=== PATIENT | male | born 1970 | race Caucasian/White ===

== ENCOUNTER 2022-09-03 20:24 | Emergency (ER) | payer BC ==
--- OUTSIDE RECORDS SUMMARY | 2022-09-03 20:28 | XMS REPORT | Continuity of Care Document ---
:1970 Author Organization [facility] t Address [address] [place] [address] Care Team Providers Name Role Phone Mindy Garcia DO Primary Care Physician Mindy Garcia Attending Clinician Unavailable MD MIRIAN Attending Clinician Unavailable MILLA HARRIS Attending Clinician Unavailable KSENIA DIAZ Attending Clinician Unavailable JULIOCESAR ROACH Attending Clinician Unavailable [id number] Attending Clinician Unavailable [id number] Attending Clinician Unavailable Ksenia Diaz MD Attending Clinician LAB90 Attending Clinician Unavailable Juliocesar Santiago Attending Clinician Payers Payer Name Policy Type Policy Number Effective Date Expiration Date S amanda BCBS 2 [id number] 2019 00:00:00 [employer] 6 [id number] 2019 Common Spiri t Blue [facility] of 00:00:00 - [facility] Problems Condition Condition Condition Status Onset Resolution Last Treating Co mments Source Name Details Category Date Date Treatment Clinician Date [id number] Vitamin D Problem Active Comm on deficiency [facility] [id number] Current Problem Active Common smoker [facility] [id number] Gastro-eso Problem Active Co mmon phageal Spirit reflux - [facility] disease [facility] esophagiti [facility] Abnormal Abnormal Problem Active Commo n weight loss of Spirit loss weight [facility] Palpitatio Palpitatio Problem Active C ommon ns ns Spirit - [facility] Chest Chest Problem Active Common discomfort discomfort Sp maria isabel - [facility] Cervicalgi Cervicalgi Problem Active C ommon a a Spirit [facility] [id number] Encounter Problem Active Com mon for Spirit vitamin - [facility] deficiency [facility] Acid Acid Problem Active Common reflux reflux [facility] [id number] Need for Problem Active Comm on diphtheria Spirit -tetanus-p - CHI ertussis St (Tdap) [facility] vaccine [facility] Cervical Cervical Problem Active Commo n radiculiti radiculiti Sp maria isabel s s - [facility] [id number] Encounter Problem Active Com mon for Spirit general - [facility] adult [facility] examinatio Medica l n with Center abnormal findings Lower Benign Problem Active Common urinary nodular [facility] tract prostatic - [facility] symptoms hyperplasi St due to a with [facility] benign lower [facility] prostatic urinary Center hypertroph tract y symptoms [id number] +5th digit Problem Active Co mmon eff Spirit 08/15/20*[place] - [facility] stroesopha [facility] reflux Medical disease Center with esophagiti s [id number] Multiple Problem Active Comm on allergies [facility] [id number] Seasonal Problem Active Comm on allergies [facility] [id number] Hemorrhoid Problem Active Com mon s, Spirit unspecifie - [facility] d hemorrhoid [facility] Nicotine Cigarette Problem Active Comm on dependence nicotine Spir it dependence - 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 Family History Family Member Diagnosis Comments Start Date Stop Date Source Natural father [facility] Natural mother [facility] Social History Social Habit Start Date Stop Date Quantity Comments Source History of Tobacco Current Smoker Co mmon Spirit - Use [facility] Cigarettes smoked 2017-09-13 2017-09-[address] current (pack per 00:00:00 00:00:00 Hospita l day) - Reported Alcohol intake 2017-09-13 2017-09-13 Current [facility] 00:[facility] 00:00:00 non-drinker of Hospital alcohol (finding) Sex Ass[birth year] At [birth year] [facility] 00[facility]00 Hospital Smoking Status Start Date Stop Date Source Current Smoker 2022-05-22 00:00:00 Common Spiri t - [facility] Medications Ordered Filled Start Stop Current Ordering Indication Dosage Frequency Signature Comments Components Source Medication Medication Date Date Medication? Clinician (SIG) Name Name Amlodipine Amlodipine 2019-0 Yes Na Garcia 1 tablet Common Besylate Besylate 06-25 Spirit 00:00: - [facility] Famotidine Famotidine 2019-0 Yes Na Garcia 1 tablet Common 6-23 at bedtime Spirit 00:00: as needed - [facility] Dexilant Dexilant 2019-0 Yes Na Garcia 1 capsule Common 2-24 Spirit 00:00: - [facility] Dexilant 60 Dexilant 60 2020-0 No 1{capsu QD Dexilant MG MG 2-24 le} 60 MG 00:00: 00 Dexilant 60 Dexilant 60 2020-0 No 1{capsu QD Dexilant MG MG 2-24 le} 60 MG 00:00: 00 Dexilant 60 Dexilant 60 2020-0 No 1{capsu QD Dexilant MG MG 2-24 le} 60 MG 00:00: 00 Pantoprazol Pantoprazol Yes Na Garcia 1 tablet Common e Sodium e Sodium 07-10 Spirit 00:00: - [facility] Chantix Chantix Yes Na Garcia as Comm on Starting Starting -28 directed Spi rit Month Michael Month Michael 00:00: - C HI [facility] Chantix Chantix 2018- No QD Chantix Starting Starting 5-28 Starting Month Michael Month Michael 00:00: Month Michael 0.5 MG X 11 0.5 MG X 11 00 0.5 MG X & 1 MG X 42 & 1 MG X 42 11 & 1 MG X 42 Chantix Chantix No QD Chantix Starting Starting 04-11 Starting Month Michael Month Michael 00:00: Month Michael 0.5 MG X 11 0.5 MG X 11 00 0.5 MG X & 1 MG X 42 & 1 MG X 42 11 & 1 MG X 42 Chantix Chantix No QD Chantix Starting Starting 04-11 Starting Month Michael Month Michael 00:00: Month Michael 0.5 MG X 11 0.5 MG X 11 00 0.5 MG X & 1 MG X 42 & 1 MG X 42 11 & 1 MG X 42 sertraline 2016-11 Yes 100mg QD Take 100 Me thodi (ZOLOFT) 0-[address] 100 MG 00:00: mouth once Hospi ta tablet 00 daily. l ranitidine 2016-11 Yes 150mg Q.5D Take 150 Me thodi (ZANTAC) 0-[address] 150 MG 00:00: mouth 2 Hospita tablet 00 (two) l times a day. Augmentin Augmentin Yes Na Garcia 1 tablet Common [facility] Zoloft Zoloft Yes Na Garcia TAKE 1 Common TABLET BY [facility] M[facility] Sertraline Sertraline Yes Na Garcia 1 tablet Common HCl HCl [facility] Flomax Flomax Yes Na Garcia 1 capsule Com mon [facility] Valacyclovi Valacyclovi Yes Na Garcia 1 tablet Common r HCl r HCl [facility] Losartan Losartan Yes Na Garcia 1 tablet Common Potassium Potassium Spiri t [facility] Mobic Mobic Yes Na Garcia 1 tablet Common [facility] Pantoprazol Pantoprazol No Pantoprazo e Sodium 40 e Sodium 40 le Sodium MG MG 40 MG Losartan Losartan No 1{table QD Losartan Potassium Potassium t} Potassium 50 MG 50 MG 50 MG valACYclovi valACYclovi No 1{table BID valACYclov r HCl 1 GM r HCl 1 GM t} ir HCl 1 GM Flomax 0.4 Flomax 0.4 No 1{capsu QD Flomax 0.4 MG MG le} MG amLODIPine amLODIPine No amLODIPine Besylate 10 Besylate 10 Besylate MG MG 10 MG Acetaminoph Acetaminoph No 2{table TID Acetaminop en ER 650 en ER 650 ts_as_n hen ER 650 MG MG eeded} MG Losartan Losartan No 1{table QD Losartan Potassium Potassium t} Potassium 100 MG 100 MG 100 MG Pantoprazol Pantoprazol No Pantoprazo e Sodium 40 e Sodium 40 le Sodium MG MG 40 MG Famotidine Famotidine No Famotidine 40 MG 40 MG 40 MG amLODIPine amLODIPine No QD amLODIPine Besylate 10 Besylate 10 Besylate MG MG 10 MG Mobic 15 MG Mobic 15 MG No 1{table QD Mobic 15 t} MG Carvedilol Carvedilol No 1{table BID Carvedilol 6.25 MG 6.25 MG t_with_ 6.25 MG food} Losartan Losartan No Losartan Potassium Potassium Potassium 100 MG 100 MG 100 MG Carvedilol Carvedilol No Carvedilol 6.25 MG 6.25 MG 6.25 MG Zoloft 100 Zoloft 100 No Zoloft 100 MG MG MG Pantoprazol Pantoprazol No 1{table QD Pantoprazo e Sodium 40 e Sodium 40 t} le Sodium MG MG 40 MG Augmentin Augmentin No 1{table BID Augmentin 875-125 MG 875-125 MG t} 875-125 MG Acetaminoph Acetaminoph No 2{table TID Acetaminop en ER 650 en ER 650 ts_as_n hen ER 650 MG MG eeded} MG Pantoprazol Pantoprazol No Pantoprazo e Sodium 40 e Sodium 40 le Sodium MG MG 40 MG Flomax 0.4 Flomax 0.4 No 1{capsu QD Flomax 0.4 MG MG le} MG valACYclovi valACYclovi No 1{table BID valACYclov r HCl 1 GM r HCl 1 GM t} ir HCl 1 GM amLODIPine amLODIPine No QD amLODIPine Besylate 10 Besylate 10 Besylate MG MG 10 MG Losartan Losartan No 1{table QD Losartan Potassium Potassium t} Potassium 100 MG 100 MG 100 MG Augmentin Augmentin No 1{table BID Augmentin 875-125 MG 875-125 MG t} 875-125 MG Famotidine Famotidine No 1{table QD Famotidine 40 MG 40 MG t_at_be 40 MG dtime_a s_neede d} Zoloft 100 Zoloft 100 No Zoloft 100 MG MG MG Losartan Losartan No 1{table QD Losartan Potassium Potassium t} Potassium 50 MG 50 MG 50 MG Mobic 15 MG Mobic 15 MG No 1{table QD Mobic 15 t} MG Pantoprazol Pantoprazol No 1{table QD Pantoprazo e Sodium 40 e Sodium 40 t} le Sodium MG MG 40 MG Sertraline Sertraline No Sertraline HCl 100 MG HCl 100 MG HCl 100 MG Carvedilol Carvedilol No 1{table BID Carvedilol 6.25 MG 6.25 MG t_with_ 6.25 MG food} Augmentin Augmentin No 1{table BID Augmentin 875-125 MG 875-125 MG t} 875-125 MG Carvedilol Carvedilol No Carvedilol 6.25 MG 6.25 MG 6.25 MG Acetaminoph Acetaminoph No 2{table TID Acetaminop en ER 650 en ER 650 ts_as_n hen ER 650 MG MG eeded} MG Zoloft 100 Zoloft 100 No Zoloft 100 MG MG MG Famotidine Famotidine No Famotidine 40 MG 40 MG 40 MG Flomax 0.4 Flomax 0.4 No 1{capsu QD Flomax 0.4 MG MG le} MG valACYclovi valACYclovi No 1{table BID valACYclov r HCl 1 GM r HCl 1 GM t} ir HCl 1 GM Pantoprazol Pantoprazol No 1{table QD Pantoprazo e Sodium 40 e Sodium 40 t} le Sodium MG MG 40 MG amLODIPine amLODIPine No amLODIPine Besylate 10 Besylate 10 Besylate MG MG 10 MG Losartan Losartan No Losartan Potassium Potassium Potassium 100 MG 100 MG 100 MG Mobic 15 MG Mobic 15 MG No 1{table QD Mobic 15 t} MG Sertraline Sertraline No Sertraline HCl 100 MG HCl 100 MG HCl 100 MG Vital Signs Vital Name Observation Time Observation Value Comments Source height 2022-05-22 14:00:00 68.25 [in_i] [facility] weight 2022-05-22 14:00:00 157.8 [lb_av] Common [facility] temperature 2022-05-22 14:00:00 98.0 [degF] [facility] bmi 2022-05-22 14:00:00 23.82 kg/m2 Common [facility] oximetry 2022-05-22 14:00:00 98 % Common [facility] respiratory rate 2022-05-22 14:00:00 16 /min Comm on [facility] blood pressure 2022-05-22 14:00:00 128 mm[Hg] Common [facility] - systolic [facility] blood pressure 2022-05-22 14:00:00 62 mm[Hg] Common [facility] - diastolic [facility] height 2021-05-27 11:40:00 69 [in_i] [facility] weight 2021-05-27 11:40:00 152.4 [lb_av] [facility] temperature 2021-05-27 11:40:00 97.7 [degF] [facility] bmi 2021-05-27 11:40:00 22.50 kg/m2 [facility] oximetry 2021-05-27 11:40:00 97 % [facility] respiratory rate 2021-05-27 11:40:00 16 /min Comm on [facility] blood pressure 2021-05-27 11:40:00 134 mm[Hg] [facility] systolic [facility] blood pressure 2021-05-27 11:40:00 84 mm[Hg] [facility] diastolic [facility] Procedures This patient has no known procedures. Plan of Care Planned Activity Planned Date Details Comments Source Future Scheduled 2022-07-17 HEPATITIS B VACCINES [facility] Test 13:52:15 (1 of 3 - 3-dose series) [code = HEPATITIS B VACCINES (1 of 3 - 3-dose series)] Future Scheduled 2022-07-17 COVID-19 VACCINE (#1) [facility] Test 13:52:15 [code = COVID-19 VACCINE (#1)] Future Scheduled 2022-07-17 COLONOSCOPY SCREENING Me [facility] Test 13:52:15 [code = COLONOSCOPY SCREENING] Future Scheduled 2022-07-17 SHINGLES VACCINES (1 [facility] Test 13:52:15 of 2) [code = SHINGLES VACCINES (1 of 2)] Future Scheduled 2022-07-17 INFLUENZA VACCINE Method [facility] Test 13:52:15 [code = INFLUENZA VACCINE] Encounters Start End Encounter Admission Attending Care Care Encounter Source Date/Time Date/Time Type Type Clinicians Facility Department ID 2022-06-26 Outpatient Garcia, Na STLMLC STLMLC [id number] Common 10:57:00 [facility] 2022-05-20 Outpatient Garcia, Na STLMLC STLMLC [id number] Common 09:40:00 [facility] 2022-03-19 Outpatient Garcia, Na STLMLC STLMLC [id number] Common 11:00:01 [facility] 2021-12-10 Outpatient Garcia, Na STLMLC STLMLC [id number] Common 13:59:37 22238 [facility] 2021-12-10 Outpatient Garcia, Na STLMLC STLMLC [id number] 2 Common 13:27:48 10426 [facility] 2021-12-10 Outpatient Garcia, Na STLMLC STLMLC [id number] 2 Common 13:24:40 68029 [facility] 2021-12-10 Outpatient Garcia, Na STLMLC STLMLC [id number] Common 13:16:46 [id number] [facility] 2021-12-10 Outpatient Garcia, Na STLMLC STLMLC [id number] 2 Common 13:06:34 [id number] [facility] 2021-12-10 Outpatient Garcia, Na STLMLC STLMLC [id number] 2 Common 13:02:17 17643 [facility] 2021-12-10 Outpatient Garcia, Na STLMLC STLMLC [id number] 2 Common 11:44:17 [id number] [facility] 2021-12-10 Outpatient Garcia, Na STLMLC STLMLC [id number] 2 Common 11:36:32 29179 [facility] 2021-12-10 Outpatient Garcia, Na STLMLC STLMLC [id number] 2 Common 11:35:56 21395 [facility] 2021-12-10 Outpatient Garcia, Na STLMLC STLMLC [id number] 2 Common 11:32:44 53254 [facility] 2021-12-10 Outpatient Garcia, Na STLMLC STLMLC [id number] 2 Common 11:17:23 35274 [facility] 2021-12-10 Outpatient Garcia, Na STLMLC STLMLC [id number] 2 Common 11:08:55 16245 [facility] 2022-08-28 2022-08-28 Outpatient IVORY SAWANT [id number] Gaby 00:00:00 00:00:00 MD CLEMENTINA Seybol d 2022-08-03 2022-08-03 Outpatient GABY HARRIS [id number] Gaby 00:00:00 00:00:00 MILLA Seybol d 2022-07-29 2022-07-29 Outpatient GABY DIAZ [id number] Gaby 08:00:00 08:00:00 KSENIA Seybol d 2022-07-28 2022-07-28 Outpatient GABY ROACH [id number] Gaby 00:00:00 00:00:00 JULIOCESAR Seybol d 2022-07-27 2022-07-27 Outpatient LAB45 GABY SAWANT [id number] Gaby 15:45:00 15:45:00 Seybol d 2022-07-27 2022-07-27 Outpatient TRED45 GABY SAWANT [id number] Gaby 15:15:00 15:15:00 Seybol d 2022-07-27 2022-07-27 Office ULYSSES Diaz [id number] Gaby 13:45:00 14:00:00 Visit Ksenia MEDICAL & [id number] Seybold DIAGNOSTI [id number] [facility] [id number] 2022-07-23 2022-07-23 Outpatient GABY ROACH [id number] Gaby 00:00:00 00:00:00 JULIOCESAR Seybol d 2022-07-23 2022-07-23 Outpatient GABY ROACH [id number] Gaby 00:00:00 00:00:00 JULIOCESAR Seybol d 2022-07-21 2022-07-21 Outpatient LAB90 GABY SAWANT [id number] Gaby 11:15:00 11:15:00 Seybol d 2022-07-21 2022-07-21 Office Jesse Roach [id number] Gaby 10:30:00 11:00:00 Visit Juliocesar Maier [id number] Se ybold [id number] 2022-07-16 2022-07-16 Outpatient GABY DIAZ [id number] Gaby 00:00:00 00:00:00 KSENIA Seybol d 2022-07-15 2022-07-15 Outpatient GABY ROACH [id number] Gaby 08:30:00 08:30:00 JULIOCESAR Seybol d 2022-07-14 2022-07-14 Outpatient GABY ROACH [id number] Gaby 00:00:00 00:00:00 JULIOCESAR Seybol d 2022-07-10 2022-07-10 Outpatient IVORY SAWANT [id number] Gaby 00:00:00 00:00:00 MD CLEMENTINA Seybol d 2022-06-18 2022-06-18 Outpatient GABY ROACH [id number] Gaby 00:00:00 00:00:00 JULIOCESAR Seybol d 2022-06-17 2022-06-17 Office Jesse Roach [id number] Gaby 10:30:00 11:00:00 Visit Juliocesar Maier [id number] Se ybold [id number] 2022-06-17 2022-06-17 Outpatient LAB90 GABY SAWANT [id number] Gaby 10:10:00 10:10:00 Seybol d 2022-06-03 2022-06-03 Office Jesse Roach [id number] Gaby 11:00:00 11:30:00 Visit Juliocesar Maier [id number] Se carlee [id number] 2022-06-03 2022-06-03 Outpatient JONAHGABY Tian GABY [id number] Gaby 00:00:00 00:00:00 JULIOCESAR Seana smith 2022-05-22 2022-05-22 OFFICE STLMLC STLMLC [id number] Co mmon 00:00:00 00:00:00 VISIT [facility] LEVEL 4 [facility] 2022-03-11 2022-03-11 (TEL) STLMLC STLMLC [id number] Co mmon 00:00:00 00:00:00 [facility] 2021-05-27 2021-05-27 PREV VISIT STLMLC STLMLC [id number] Common 00:00:00 00:00:00 EST AGE [facility] 40-64 - [facility] 2021-04-29 2021-04-29 Outpatient STLMLC STLMLC [id number] Common 00:00:00 00:00:00 [facility] 2021-03-18 2021-03-18 Outpatient STLMLC STLMLC [id number] Common 00:00:00 00:00:00 [facility] 2021-03-18 2021-03-18 Outpatient STLMLC STLMLC [id number] Common 00:00:00 00:00:00 [facility] 2021-03-14 2021-03-14 Outpatient STLMLC STLMLC [id number] Common 00:00:00 00:00:00 [facility] 2020-09-06 2020-09-06 Outpatient STLMLC STLMLC [id number] Common 00:00:00 00:00:00 [facility] 2020-07-26 2020-07-26 [facility] [id number] Common 16:00:00 16:00:00 [email or web address] [facility] [employer] [facility] 2020-07-08 2020-07-08 [facility] [id number] Common 08:00:00 08:00:00 t Specialty/U Sp maria isabel Specialty rology - [facility] /[facility] Clinic [facility] 2020-06-25 2020-06-25 [facility] [id number] Common 15:20:00 15:20:00 t Randall [employer] Spir it [address] [facility] 2020-05-07 2020-05-07 [facility] [id number] Common 08:00:00 08:00:00 t Randall [employer] Spir it Drive [facility] 2020-04-12 2020-04-12 [facility] [id number] Common 09:00:00 09:00:00 t Specialty/U Sp maria isabel Specialty rology - [facility]I /[facility] 2020-01-08 2020-01-08 [facility] [id number] Common 09:30:00 09:30:00 t Specialty/U Sp maria isabel Specialty rology - [facility]I /[facility] Clinic [facility] 2020-01-08 2020-01-08 [facility] [id number] Common 08:00:00 08:00:00 t Randall [employer] Spir it Drive [facility] 2019-10-06 2019-10-06 [facility] [id number] Common 09:30:00 09:30:00 t Specialty/U Sp maria isabel Specialty rology - [facility] /[facility] Clinic [facility] 2019-08-03 2019-08-03 [facility] [id number] Common 09:30:00 09:30:00 t Specialty/U Sp maria isabel Specialty rology - [facility] /[facility] 2019-07-10 2019-07-10 [facility] [id number] Common 08:00:00 08:00:[address] [facility] 2019-05-04 2019-05-04 [facility] [id number] Common 09:15:00 09:15:00 t Specialty/U Sp maria isabel Specialty rology - [facility] 2019-01-16 2019-01-16 [facility] [id number] Common 13:00:00 13:00:00 t Specialty/U Sp maria isabel Specialty rology - [facility] 2018-12-15 2018-12-15 [facility] [id number] Common 09:12:00 09:12:00 t Specialty/U Sp maria isabel Specialty rology - [facility] 2018-12-14 2018-12-14 [facility] [id number] Common 14:08:00 14:08:00 t Specialty/U Sp maria isabel Specialty rology - [facility] 2018-10-26 2018-10-26 [facility] [id number] Common 10:15:00 10:15:00 t Specialty/U Sp maria isabel Specialty rology - [facility] 2018-08-31 2018-08-31 Outpatient [facility] [id number] Common 15:11:00 15:11:00 t Specialty/U Sp maria isabel Specialty rology - [facility] 2018-04-28 2018-04-28 [facility] [id number] Common 09:00:00 09:00:00 t Specialty/U Sp maria isabel Specialty rology - [facility] 2018-04-14 2018-04-14 [facility] [id number] Common 11:15:00 11:15:00 t [employer] [facility] Results Test Description Test Time Test Comments Results Result Comments Source Lipid Panel w/ Chol/HDL Ratio 2021-05-27 00:00:00 Test Item Value Reference Range Interpretation Comme nts Cholesterol, Total (test code = 2093-3) 235 100-199 Triglycerides (test code = 2571-8) 136 0-149 HDL Cholesterol (test code = 2085-9) 68 >39 T. Chol/HDL Ratio (test code = 9830-1) 3.5 0.0-5.0 PSA Total (Reflex To Free)2021-05-27 00:00:00 Test Item Value Reference Range Interpretation Comments Prostate Specific Ag, Serum (test code 1.0 0.0-4.0 = 2857-1) Reflex Criteria (test code = UNLOINC) Urinalysis, [id number] 00:00:00 Test Item Value Reference Range Interpretation Comments Specific Vanzant (test code = 1.005 1.005-1.030 2965-2) pH (test code = 5803-2) 7.0 5.0-7.5 Urine-Color (test code = 5778-6) Yellow Yellow Appearance (test code = 5767-9) Clear Clear WBC Esterase (test code = 5799-2) Trace Negative Protein (test code = 40816-0) Negative Negative/Trace Glucose (test code = 2349-9) Negative Negative Ketones (test code = 2514-8) Negative Negative Occult Blood (test code = 5794-3) Negative Negative Bilirubin (test code = 5770-3) Negative Negative Urobilinogen,Semi-Qn (test code = 0.2 0.2-1.0 16323-9) Nitrite, Urine (test code = Negative Negative 5802-4) Microscopic Examination (test code See below: = 78255-2) Comp. Metabolic Panel (14) (CMP)2021-05-27 00:00:00 Test Item Value Reference Range Interpretation Comments Glucose (test code = 2345-7) 101 65-99 BUN (test code = 3094-0) 11 6-24 Creatinine (test code = 2160-0) 0.97 0.76-1.27 eGFR If NonAfricn Am (test code = 89 >59 92949-7) eGFR If Africn Am (test code = 72657-5) 103 >59 BUN/Creatinine Ratio (test code = 11 9-20 3097-3) Sodium (test code = 2951-2) 140 134-144 Potassium (test code = 2823-3) 4.6 3.5-5.2 Chloride (test code = 2075-0) 99 96-106 Carbon Dioxide, Total (test code = 24 20-29 2028-07) Calcium (test code = 41653-2) 10.4 8.7-10.2 Protein, Total (test code = 2885-2) 7.2 6.0-8.5 Albumin (test code = 1751-7) 4.7 3.8-4.9 Globulin, Total (test code = 37526-3) 2.5 1.5-4.5 A/G Ratio (test code = 1759-0) 1.9 1.2-2.2 Bilirubin, Total (test code = 1975-2) 1.0 0.0-1.2 Alkaline Phosphatase (test code = 55 48-121 6768-6) AST (SGOT) (test code = 1920-8) 34 0-40 ALT (SGPT) (test code = 1742-6) 41 0-44 CBC With Differential/[id number] 00:00:00 Test Item Value Reference Range Interpretation Comments WBC (test code = 6690-2) 9.7 3.4-10.8 RBC (test code = 789-8) 4.69 4.14-5.80 Hemoglobin (test code = 718-7) 16.2 13.0-17.7 Hematocrit (test code = 4544-3) 45.5 37.5-51.0 MCV (test code = 787-2) 97 79-97 MCH (test code = 785-6) 34.5 26.6-33.0 MCHC (test code = 786-4) 35.6 31.5-35.7 RDW (test code = 788-0) 13.7 11.6-15.4 Platelets (test code = 777-3) 231 150-450 Neutrophils (test code = 770-8) 66 Not Estab. Lymphs (test code = 736-9) 23 Not Estab. Monocytes (test code = 5905-5) 7 Not Estab. Eos (test code = 713-8) 2 Not Estab. Basos (test code = 706-2) 1 Not Estab. Immature Cells (test code = UNLOINC) Neutrophils (Absolute) (test code = 6.4 1.4-7.0 751-8) Lymphs (Absolute) (test code = 731-0) 2.2 0.7-3.1 Monocytes(Absolute) (test code = 742-7) 0.7 0.1-0.9 Eos (Absolute) (test code = 711-2) 0.2 0.0-0.4 Baso (Absolute) (test code = 704-7) 0.1 0.0-0.2 Immature Granulocytes (test code = 1 Not Estab. 41997-8) Immature Grans (Abs) (test code = 0.1 0.0-0.1 37258-7) NRBC (test code = 21884-2) Hematology Comments: (test code = 96228-7)
[2022-09-03 22:27] LABS: Hematocrit 39.9 % (39.6-49.0); Lymphocytes % 33.2 % (15.3-44.8); MCV 99.5 fL (80-100); MPV 8.6 fL (7.6-11.3); RBC Red Blood Cell Count 4.01 M/uL (4.33-5.43)
[2022-09-03 22:41] LABS: Protime INR 0.9
[2022-09-03 22:44] LABS: Albumin 4.1 g/dL (3.4-5.0); Bilirubin Total 0.3 mg/dL (0.2-1.0); Potassium 3.7 mmol/L (3.5-5.1); Protein, Total 7.7 g/dL (6.4-8.2)
--- NOTE | 2022-09-04 01:52 | ER ---
Nurse's Notes [facility] Name: Duane Concepcion Age: 52 yrs Sex: Male : 1970 Arrival Date: 09/03/2022 Time: 20:27 Bed 18 Private MD: Diagnosis: Bright red blood per rectum;Recent colonoscopy Presentation: 09/03 20:46 Chief complaint: Patient states: colonoscopy Wednesday by Dr. Turcios and rectal bleeding 5 started today, 3 bright red, clotting bowel movements. Coronavirus screen: Vaccine status:. Coronavirus screen: Vaccine status: Patient reports receiving the 2nd dose of the covid vaccine. Ebola Screen: Patient negative for fever greater than or equal to 101.5 degrees Fahrenheit, and additional compatible Ebola Virus Disease symptoms Patient denies exposure to infectious person. Patient denies travel to an Ebola-affected area in the 21 days before illness onset. Initial Sepsis Screen: Does the patient meet any 2 criteria? No. Patient's initial sepsis screen is negative. Does the patient have a suspected source of infection? No. Patient's initial sepsis screen is negative. Risk Assessment: Do you want to hurt yourself or someone else? Patient reports no desire to harm self or others. Onset of symptoms was September 03, 2022. 20:46 Method Of Arrival: Ambulatory [facility] 20:46 Acuity: LIAT 3 jh5 Triage Assessment: 20:50 General: Appears in no apparent distress. uncomfortable, slender, well groomed, well jh5 developed, Behavior is calm, cooperative, appropriate for age. Pain: Denies pain. Historical: - Allergies: 20:50 No Known Allergies; jh5 - PMHx: 20:50 Anxiety; Hypertensive disorder; acid reflux; jh5 - Immunization history:: Adult Immunizations up to date. - Social history:: Smoking status: Patient reports the use of cigarette tobacco products, cigars. Screenin:45 Abuse screen: Denies threats or abuse. Nutritional screening: No deficits noted. kl Tuberculosis screening: No symptoms or risk factors identified. Fall Risk None identified. Assessment: 21:44 General: Appears in no apparent distress. comfortable, Behavior is calm, appropriate for age. Pain: Denies pain. Neuro: No deficits noted. Cardiovascular: No deficits noted. Respiratory: No deficits noted. GI: Reports rectal bleeding, bloody stool, x 3 episodes this evening colonoscopy on Wednesday with polyp removal. : No deficits noted. No signs and/or symptoms were reported regarding the genitourinary system. EENT: No deficits noted. No signs and/or symptoms were reported regarding the EENT system. 22:56 Reassessment: Patient appears in no apparent distress at this time. Patient and/or kl family updated on plan of care and expected duration. Pain level reassessed. Patient is alert, oriented x 3, equal unlabored respirations, skin warm/dry/pink. 23:30 Reassessment: Patient appears in no apparent distress at this time. Patient and/or kl family updated on plan of care and expected duration. Pain level reassessed. Patient is alert, oriented x 3, equal unlabored respirations, skin warm/dry/pink. 09/04 01:00 Reassessment: Patient appears in no apparent distress at this time. Patient and/or kl family updated on plan of care and expected duration. Pain level reassessed. Patient is alert, oriented x 3, equal unlabored respirations, skin warm/dry/pink. Vital Signs: 09/03 20:46 BP 128 / 97; Pulse 75; Resp 18; Temp 98.8; Pulse Ox 100% ; Weight 72.57 kg; Height 5 5 ft. 9 in. (175.26 cm); Pain 0/10; 22:55 BP 127 / 85; Pulse 70; Resp 16; Pulse Ox 98% ; kl 09/04 02:02 BP 127 / 86; Pulse 90; Resp 20; Pulse Ox 98% on R/A; Pain 0/10; kl 09/03 20:46 Body Mass Index 23.63 (72.57 kg, 175.26 cm) 5 ED Course: 09/03 20:27 Patient arrived in ED. dt4 20:50 Triage completed. jh5 20:50 Arm band placed on right wrist. jh5 20:51 Katey Carbajal MD is Attending Physician. sd2 21:40 Inserted saline lock: 20 gauge in right antecubital area, using aseptic technique. kl 21:45 No provider procedures requiring assistance completed. kl 21:55 Ptt, Activated Sent. kl 21:55 CMP Sent. kl 21:55 PT-INR Sent. kl 21:55 CBC with Diff Sent. kl 23:37 CT Abd/Pelvis - IV Contrast Only In Process Unspecified. EDMS 09/04 01:50 Matti Abbasi MD is Referral Physician. sd2 02:03 Patient has correct armband on for positive identification. kl 02:03 IV discontinued, intact, bleeding controlled, No redness/swelling at site. Pressure kl dressing applied. Administered Medications: No medications were administered Medication: 09/03 21:45 VIS not applicable for this client. kl Outcome: 09/04 01:51 Discharge ordered by . sd2 02:03 Discharged to home ambulatory. kl 02:03 Condition: stable 02:03 Discharge instructions given to patient, Instructed on discharge instructions, follow up and referral plans. Demonstrated understanding of instructions, follow-up care. 02:04 Patient left the ED. kl Signatures: Dispatcher [employer] EDND Yanelis Ledesma RN RN kl Rees, Jessica, RN RN Katey Longo MD MD sd2 Leonor Harrison dt4 Corrections: (The following items were deleted from the chart) 09/03 20:51 20:50 PMHx: Hypercholesterolemia; collins guadalupe
--- NOTE | 2022-09-04 01:52 | EDPHYS ---
Physician Documentation [facility] Name: Duane Concepcion Age: 52 yrs Sex: Male : 1970 Arrival Date: 09/03/2022 Time: 20:27 Bed 18 Private MD: ED Physician Katey Carbajal HPI: 09/04 01:16 This 52 yrs old Male presents to ER via Ambulatory with complaints of Rectal Bleeding. sd2 01:16 52 yo M presents with CC of BRBPR. Reports started today with 3 episodes so far. Had sd2 colonoscopy performed with Dr. Gonzales on Wednesday of this week and had a large polyp removed per patient report. Not currently on ASA or blood thinners. States has had some bleeding in the past due to hemorrhoids but this bleeding has not been from his hemorrhoids. No associated significant pain. Reports abdominal discomfort. Denies fever, CP, SOB.. Historical: - Allergies: 09/03 20:50 No Known Allergies; [facility] - PMHx: 20:50 Anxiety; Hypertensive disorder; acid reflux; [facility] - Immunization history:: Adult Immunizations up to date. - Social history:: Smoking status: Patient reports the use of cigarette tobacco products, cigars. ROS: 09/04 01:16 Constitutional: Negative for fever, chills, and weight loss, Eyes: Negative for injury, sd2 pain, redness, and discharge, Cardiovascular: Negative for chest pain, palpitations, and edema, Respiratory: Negative for shortness of breath, cough, wheezing. : Negative for dysuria, frequency or hematuria. MS/Extremity: Negative for injury and deformity, Skin: Negative for injury, rash, and discoloration, Neuro: Negative for headache, numbness and tingling. Abdomen/GI: Positive for diarrhea, rectal bleeding, Negative for abdominal pain, nausea and vomiting. Exam: 01:16 Constitutional: This is a well developed, well nourished patient who is awake, alert, sd2 and in no acute distress. Head/Face: Normocephalic, atraumatic. Eyes: EOMI, normal conjunctiva bilaterally Chest/axilla: Normal chest wall appearance and motion. Nontender with no deformity. Cardiovascular: Regular rate and rhythm with a normal S1 and S2. No gallops, murmurs, or rubs. 2+ distal pulses. Respiratory: Lungs have equal breath sounds bilaterally, clear to auscultation and percussion. No rales, rhonchi or wheezes noted. No increased work of breathing, no retractions or nasal flaring. Abdomen/GI: Soft, non-tender, with normal bowel sounds. No guarding or rebound. No evidence of tenderness throughout. Skin: Warm, dry with normal turgor. Normal color with no rashes, no lesions, and no evidence of cellulitis. MS/ Extremity: Pulses equal, no cyanosis. Neurovascular intact. Full, normal range of motion. Ambulatory without difficulty. Psych: Awake, alert, with orientation to person, place and time. Behavior, mood, and affect are within normal limits. Vital Signs: 09/03 20:46 BP 128 / 97; Pulse 75; Resp 18; Temp 98.8; Pulse Ox 100% ; Weight 72.57 kg; Height 5 jh5 ft. 9 in. (175.26 cm); Pain 0/10; 22:55 BP 127 / 85; Pulse 70; Resp 16; Pulse Ox 98% ; kl 09/04 02:02 BP 127 / 86; Pulse 90; Resp 20; Pulse Ox 98% on R/A; Pain 0/10; kl 09/03 20:46 Body Mass Index 23.63 (72.57 kg, 175.26 cm) jh5 MDM: 09/03 21:50 Patient medically screened. sd2 09/04 01:16 Differential diagnosis: hemorrhoids, fissure, abscess, pilonidal cyst, condyloma, sd2 diverticulosis, active GIB among others. Data reviewed: vital signs, nurses notes. 01:18 ED course: I have attempted to contact Dr. Gonzales twice in regards to this patient sd2 with no response at this time. . 01:48 Data reviewed: lab test result(s), radiologic studies. Counseling: I had a detailed sd2 discussion with the patient and/or guardian regarding: the historical points, exam findings, and any diagnostic results supporting the discharge/admit diagnosis, lab results, radiology results, the need for outpatient follow up, to return to the emergency department if symptoms worsen or persist or if there are any questions or concerns that arise at home. ED course: I discussed with the patient all findings including possible bleed on CT scan. Pt has not had any further bleeding since he has been in the ER, VSS and benign abdominal exam. H\T\H also stable. 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 Jante brown. The patient would prefer to go home and call Dr. Gonzales's office first thing in the AM to be seen and followed up. I advised the patient that he could and should return at any time for further bleeding or worsening of his condition. He verbalizes understanding of discharge plan and strict return precautions at this time.. 09/03 20:52 Order name: CBC with Diff; Complete Time: 22:45 sd2 09/03 20:52 Order name: CMP; Complete Time: 22:45 sd2 09/03 20:52 Order name: PT-INR; Complete Time: 22:45 sd2 09/03 20:52 Order name: Ptt, Activated; Complete Time: 22:45 sd2 09/03 20:52 Order name: CT Abd/Pelvis - IV Contrast Only sd2 Administered Medications: No medications were administered Disposition Summary: 09/04/22 01:51 Discharge Ordered Location: Home sd2 Problem: new sd2 Symptoms: have improved sd2 Condition: Stable sd2 Diagnosis - Bright red blood per rectum sd2 - Recent colonoscopy sd2 Followup: sd2 - With: Matti Abbasi MD - When: Today - Reason: Recheck today's complaints, Continuance of care, Re-evaluation by your physician Discharge Instructions: - Discharge Summary Sheet sd2 - Rectal Bleeding sd2 Forms: - Medication Reconciliation Form sd2 - Thank You Letter sd2 - Antibiotic Education sd2 - Prescription Opioid Use sd2 Signatures: Dispatcher [employer] Nava Hernandez RN RN 5 Katey Carbajal MD MD sd2 Corrections: (The following items were deleted from the chart) 09/03 20:51 20:50 PMHx: Hypercholesterolemia; collins guadalupe
[2022-09-04 02:24] VITALS: TEMP 98.8
[2022-09-04 02:25] VITALS: O2SAT 98
[2022-09-04 02:27] VITALS: BP 127/86
--- NOTE | 2022-09-04 10:47 | RAD REPORT ---
EXAM DESCRIPTION: ADDENDUM #1 THIS REPORT CONTAINS FINDINGS THAT MAY BE CRITICAL TO PATIENT CARE: The findings were verbally discus sed via telephone conference with Dr. Katey Carbajal by Dr. Marcus Miramontes on 09/04/2022 12:14 A M CDT .The results were acknowledged and understood. Electronically signed by: Marcus Miramontes MD 09/04/2022 12:16 AM CDT End of Addendum EXAM DESCRIPTION: CT Abdomen and Pelvis With Intravenous Contrast CLINICAL HISTORY: The patient is 52 years old and is Male; rectal bleeding TECHNIQUE: Axial computed tomography images of the abdomen and pelvis with intravenous contrast. S agittal and coronal reformatted images were created and reviewed. This CT exam was performed using one or more of the following dose reduction techniques: automated exposure control, adjustment of t he mA and/or kV according to patient size, and/or use of iterative reconstruction technique. COMPARISON: No relevant prior studies available. FINDINGS: Lung bases: Unremarkable. No mass. No consolidation. ABDOMEN: Liver: Diffuse hepatic steatosis. Gallbladder and bile ducts: Unremarkable. No calcified stones. No ductal dilation. Pancreas: Unremarkable. No mass. No ductal dilation. Spleen: Unremarkable. No splenomegaly. Adrenals: Unremarkable. No mass. Kidneys and ureters: Simple cysts of the kidneys. ACR White Paper guidelines (Marie, et al. JACR 2018; 15(2):264-273) suggest no follow-up is necessary. No hydronephrosis. Stomach and bowel: There may be mild rectal mucosal thickening, but evaluation is limited by nond istention. Small focus of intraluminal hyperdensity in the proximal colon which is nonspecific. PELVIS: Appendix: No findings to suggest acute appendicitis. Bladder: Left posterior bladder diverticulum. Reproductive: Unremarkable as visualized. ABDOMEN and PELVIS: Intraperitoneal space: Unremarkable. No free air. No significant fluid collection. Bones/joints: No acute fracture. No dislocation. Soft tissues: Unremarkable. Vasculature: Unremarkable. No abdominal aortic aneurysm. Lymph nodes: Unremarkable. No enlarged lymph nodes. IMPRESSION: 1. There may be mild rectal mucosal thickening, but evaluation is limited by nondisten tion. Diffuse neoplasm or mild proctitis is not excluded. 2. Small focus of intraluminal hyperdensity in the proximal colon which is nonspecific. Hemorrhag e/contrast extravasation is not excluded. 3. Diffuse hepatic steatosis. Electronically signed by: Marcus Miramontes MD 09/04/2022 12:09 AM CDT ADDENDUM #1 THIS REPORT CONTAINS FINDINGS THAT MAY BE CRITICAL TO PATIENT CARE: The findings were verbally discus sed via telephone conference with Dr. Katey Carbajal by Dr. Marcus Miramontes on 09/04/2022 12:14 A M CDT .The results were acknowledged and understood. Electronically signed by: Marcus Miramontes MD 09/04/2022 12:16 AM CDT End of Addendum ADDENDUM #1 THIS REPORT CONTAINS FINDINGS THAT MAY BE CRITICAL TO PATIENT CARE: The findings were verbally discus sed via telephone conference with Dr. Katey Carbajal by Dr. Marcus Miramontes on 09/04/2022 12:14 A M CDT .The results were acknowledged and understood. Electronically signed by: Marcus Miramontes MD 09/04/2022 12:16 AM CDT End of Addendum EXAM DESCRIPTION: CT Abdomen and Pelvis With Intravenous Contrast CLINICAL HISTORY: The patient is 52 years old and is Male; rectal bleeding TECHNIQUE: Axial computed tomography images of the abdomen and pelvis with intravenous contrast. S agittal and coronal reformatted images were created and reviewed. This CT exam was performed using one or more of the following dose reduction techniques: automated exposure control, adjustment of t he mA and/or kV according to patient size, and/or use of iterative reconstruction technique. COMPARISON: No relevant prior studies available. FINDINGS: Lung bases: Unremarkable. No mass. No consolidation. ABDOMEN: Liver: Diffuse hepatic steatosis. Gallbladder and bile ducts: Unremarkable. No calcified stones. No ductal dilation. Pancreas: Unremarkable. No mass. No ductal dilation. Spleen: Unremarkable. No splenomegaly. Adrenals: Unremarkable. No mass. Kidneys and ureters: Simple cysts of the kidneys. ACR White Paper guidelines (Hercinthya, et al. JACR 2018; 15(2):264-273) suggest no follow-up is necessary. No hydronephrosis. Stomach and bowel: There may be mild rectal mucosal thickening, but evaluation is limited by nond istention. Small focus of intraluminal hyperdensity in the proximal colon which is nonspecific. PELVIS: Appendix: No findings to suggest acute appendicitis. Bladder: Left posterior bladder diverticulum. Reproductive: Unremarkable as visualized. ABDOMEN and PELVIS: Intraperitoneal space: Unremarkable. No free air. No significant fluid collection. Bones/joints: No acute fracture. No dislocation. Soft tissues: Unremarkable. Vasculature: Unremarkable. No abdominal aortic aneurysm. Lymph nodes: Unremarkable. No enlarged lymph nodes. IMPRESSION: 1. There may be mild rectal mucosal thickening, but evaluation is limited by nondisten tion. Diffuse neoplasm or mild proctitis is not excluded. 2. Small focus of intraluminal hyperdensity in the proximal colon which is nonspecific. Hemorrhag e/contrast extravasation is not excluded. 3. Diffuse hepatic steatosis. Electronically signed by: Marcus Miramontes MD 09/04/2022 12:09 AM CDT Due to temporary technical issues with the PACS/Fluency reporting system, reports are being signed by the in house radiologists without review as a courtesy to insure prompt reporting. The interpreting radiologist is fully responsible for the content of the report.
== END 2022-09-04 02:04 | disposition home or self-care (01) ==
LOC: ER 20:24
DX: K62.5 Hemorrhage of anus and rectum (principal); Z98.890 Other specified postprocedural states; F17.210 Nicotine dependence, cigarettes, uncomplicated
CPT/HCPCS: 85025; 36415; 85610; 85730; 80053; 74177; 99283; Q9967